=== PATIENT | female | born 1985 | race American Indian/Alaskan Native ===

== ENCOUNTER 2018-08-18 22:00 | Inpatient (IN) | payer BC, MEDICAID ==
--- NOTE | 2018-08-18 22:10 | Emergency Department Report ---
Chief Complaint: High BP Stated Complaint: HBP CHEST AND PRESSURE Time Seen by Provider: 08/18/18 22:10 - HPI History of Present Illness: rx lisinopril/hctz synthroid pmh htn hypothyroid psh c sec lmp 1 w ago cc substernal cp and faint pcp Dr Cantor risk obese htn mom/dad alive - dm/htn mse completed - Exam Vital Signs: Vital Signs 08/18/18 22:04 Temperature 98.1 F Pulse Rate 114 H Respiratory 18 Rate Blood Pressure 170/99 O2 Sat by Pulse 100 Oximetry MSE screening note: Focused history and physical exam performed. Due to findings the following was ordered: ED Disposition for MSE Condition: Stable
[2018-08-18 22:36] LABS: Hematocrit 37.5 % (30.3-42.9); Hemoglobin 12.4 gm/dl (10.1-14.3); Mean Corpuscular HGB Conc 33 % (30-34); Mean Corpuscular Volume 77 fl (79-97); Platelet Count 384 K/mm3 (140-440); Red Blood Count 4.88 M/mm3 (3.65-5.03); Red Cell Distribution Width 16.2 % (13.2-15.2)
[2018-08-18 22:50] LABS: Alanine Aminotransferase 15 units/L (7-56); BUN/Creatinine Ratio 16; Blood Urea Nitrogen 11 mg/dL (7-17); Calcium 9.4 mg/dL (8.4-10.2); Hemolysis Index 64
[2018-08-18] MEDS ORDERED: NITRO-BID 2% TP ONE (23:04)
--- NOTE | 2018-08-18 23:17 | Emergency Department Report ---
HPI - General Chief Complaint: High BP Time Seen by Provider: 08/18/18 22:10 - HPI HPI: Room 24 The patient is 33-year-old female presenting with a chief complaint of headache and chest pressure. The patient states she's been intermittently compliant with her blood pressure medication. The patient states the past month she's had intermittent substernal chest discomfort described as a heaviness associated with shortness of breath and nausea. Patient denies vomiting or diaphoresis. The patient states today she began to feel near syncopal and since 21:00 she's also had a headache prompting her to go to an urgent care facility who in turn sent her to the ED secondary to her elevated blood pressure. Patient states she's never had a stress test or cardiac catheterization Location: Chest, head Duration: Intermittent times one month Quality: Heaviness Severity: Moderate Modifying factors: [see above] Context: [see above] Mode of transportation: [not driving] ED Past Medical Hx - Past Medical History Previous Medical History?: Yes Hx Hypertension: Yes (Medications) Additional medical history: Hypothyroid, Morbid Obesity - Surgical History Additional Surgical History: - Family History Family history: no significant - Social History Smoking Status: Never Smoker Substance Use Type: None (denies illicit drug use), Alcohol (occasional) - Medications Home Medications: Home Medications Medication Instructions Recorded Confirmed Last Taken Type Labetalol [Normodyne] 200 mg PO BID 11/14/14 08/19/18 01/14/15 02:30 History Levothyroxine Sodium [Synthroid] 100 mcg PO DAILY 11/14/14 08/19/18 01/28/15 07:46 History Tablet 1 tab PO DAILY 11/14/14 08/19/18 01/13/15 09:00 History oxyCODONE /ACETAMINOPHEN [Percocet 1 tab PO Q4HR PRN #30 tablet 01/27/15 08/19/18 Unknown Rx 5/325 mg] Lisinopril/Hydrochlorothiazide 20 mg PO QDAY 08/19/18 08/19/18 Unknown History ED Review of Systems ROS: Stated complaint: HBP CHEST AND PRESSURE Other details as noted in HPI Constitutional: diaphoresis Eyes: denies: eye pain ENT: denies: throat pain Respiratory: shortness of breath Cardiovascular: chest pain Endocrine: no symptoms reported Gastrointestinal: nausea. denies: vomiting Genitourinary: denies: dysuria Musculoskeletal: denies: back pain Neurological: headache Physical Exam - Physical Exam Vital Signs: Vital Signs 08/18/18 08/18/18 22:04 22:13 Temperature 98.1 F 98.1 F Pulse Rate 114 H 107 H Respiratory 18 18 Rate Blood Pressure 170/99 170/99 O2 Sat by Pulse 100 100 Oximetry Physical Exam: GENERAL: The patient is well-developed well-nourished female lying on stretcher not appearing to be in acute distress. [] HEENT: Normocephalic. Atraumatic. Extraocular motions are intact. Patient has moist mucous membranes. NECK: Supple. Trachea midline CHEST/LUNGS: Clear to auscultation. There is no respiratory distress noted. HEART/CARDIOVASCULAR: Regular. There is no tachycardia. There is no gallop rub or murmur. ABDOMEN: Abdomen is soft, nontender. Patient has normal bowel sounds. There is no abdominal distention. SKIN: There is no rash. There is no edema. There is no diaphoresis. NEURO: The patient is awake, alert, and oriented. The patient is cooperative. The patient has no focal neurologic deficits. The patient has normal speech. Cranial nerves II through XII grossly intact, no drift MUSCULOSKELETAL: There is no evidence of acute injury. ED Course Vital Signs 08/18/18 08/18/18 22:04 22:13 Temperature 98.1 F 98.1 F Pulse Rate 114 H 107 H Respiratory 18 18 Rate Blood Pressure 170/99 170/99 O2 Sat by Pulse 100 100 Oximetry ED Medical Decision Making - Lab Data Result diagrams: 08/18/18 22:27 08/18/18 22:27 Laboratory Tests 08/18/18 08/18/18 08/18/18 22:27 22:27 22:50 WBC 7.5 RBC 4.88 Hgb 12.4 Hct 37.5 MCV 77 L MCH 26 L MCHC 33 RDW 16.2 H Plt Count 384 Sodium 135 L Potassium 4.2 Chloride 97.3 L Carbon Dioxide 25 Anion Gap 17 BUN 11 Creatinine 0.7 Estimated GFR > 60 BUN/Creatinine Ratio 16 Glucose 98 Calcium 9.4 Total Bilirubin 0.30 AST 18 ALT 15 Alkaline Phosphatase 75 Troponin T < 0.010 Total Protein 7.8 Albumin 4.0 Albumin/Globulin Ratio 1.1 Urine Color Straw Urine Turbidity Clear Urine pH 6.0 Ur Specific [place] 1.003 Urine Protein <15 mg/dl Urine Glucose (UA) Neg Urine Ketones Neg Urine Blood Neg Urine Nitrite Neg Urine Bilirubin Neg Urine Urobilinogen < 2.0 Ur Leukocyte Esterase Tr Urine WBC (Auto) 1.0 Urine RBC (Auto) 1.0 U Epithel Cells (Auto) 3.0 Urine Bacteria (Auto) 1+ Urine HCG, Qual Negative - EKG Data -: EKG Interpreted by Me EKG shows normal: sinus rhythm Rate: normal - EKG Data When compared to previous EKG there are: previous EKG unavailable Interpretation: other (no ischemic changes seen) - Radiology Data Radiology results: pending (CT head), report reviewed (chest x-ray), image reviewed (CT head) interpreted by me: CT head (read by myself) -no gross acute hemorrhage seen - Differential Diagnosis hypertensive urgency, ACS, pericarditis, GERD, ICH Critical care attestation.: If time is entered above; I have spent that time in minutes in the direct care of this critically ill patient, excluding procedure time. ED Disposition Clinical Impression: Hypertensive urgency, Chest pain Disposition: DC-09 OP ADMIT IP TO THIS HOSP Is pt being admited?: Yes Does the pt Need Aspirin: Yes Condition: Fair Instructions: Chest Pain (ED) Time of Disposition: 01:39 (hospitalist notified Dr Taylor))
[2018-08-18 23:53] LABS: Bacteria,Urine 1+ /HPF (Negative); Bilirubin,Urine NEG (Negative); Blood,Urine NEG (Negative); Color,Urine Straw (Yellow); Protein,Urine <15 mg/dL mg/dL (Negative); Urobilinogen,Urine < 2.0 mg/dL (<2.0)
[2018-08-18 23:56] LABS: HCG Qualitative,Urine Negative (Negative)
--- NOTE | 2018-08-19 01:09 | XRay Report ---
PROCEDURE: XR CHEST 1V AP TECHNIQUE: Chest radiograph single view. HISTORY: chest pain COMPARISONS: None . FINDINGS: Heart: Normal. Mediastinum/Vessels: Normal. Lungs/Pleural space: Normal. Bony thorax: No acute osseous abnormality. Life support devices: None. IMPRESSION: No acute cardiopulmonary abnormality. This document is electronically signed by Jazz Myles DO., August 19 2018 01:07:03 AM ET
--- NOTE | 2018-08-19 01:52 | Cat Scan Report ---
PROCEDURE: CT HEAD/BRAIN WO CON TECHNIQUE: Computerized tomography of the head was performed without contrast material. CT DOSE LENGTH PRODUCT: 805 mGycm HISTORY: hypertension, headache COMPARISONS: None . FINDINGS: Skull and scalp: Normal . Paranasal sinuses: Normal . Ventricles and subarachnoid spaces: Normal . Cerebrum: No evidence of hemorrhage, acute infarction or mass . Cerebellum and brainstem: No evidence of hemorrhage, acute infarction or mass . Vasculature: Normal . Other: None . ASPECTS: 10 IMPRESSION: Normal Examination . This document is electronically signed by Jazz Myles DO., August 19 2018 01:50:36 AM ET
[2018-08-19] MEDS ORDERED: NITROSTAT SL PRN (03:37)
[2018-08-19] MEDS ORDERED: MORPHINE IV PRN (03:38)
[2018-08-19] MEDS ORDERED: ZOFRAN IV PRN (03:38)
[2018-08-19] MEDS ORDERED: TYLENOL PO PRN (03:38)
[2018-08-19] MEDS: HEPARIN SUB-Q SCH ×2 (04:17→13:45)
--- NOTE | 2018-08-19 05:47 | History and Physical Report ---
CHIEF COMPLAINT: Chest pain. OTHER COMPLAINT: Include headaches. HISTORY OF PRESENTING ILLNESS: The patient is a 33-year-old female who says she has been having intermittent chest pain going on for about one month. The pain reoccurred yesterday 08/18/2018 with headache and near syncopal feeling. There is also history of associated shortness of breath and nausea, but no vomiting. The patient also denies history of diaphoresis and said that her blood pressure was high and went to an urgent care from where she was referred to the Emergency Room because of elevated blood pressure with chest pain. The patient's pain is in the retrosternal and precordial area, appears as heaviness, does not radiate, not affected by movement or breathing. PAST MEDICAL HISTORY: Pertinent for hypertension, hypothyroidism, morbid obesity. PAST SURGICAL HISTORY: Pertinent for . FAMILY HISTORY: Family history is noncontributory. SOCIAL HISTORY: The patient does not smoke, drinks alcohol occasionally and does not use illicit drugs. MEDICATIONS: The patient is on labetalol 200 mg by mouth daily, levothyroxine 100 mcg by mouth daily, Percocet 5/325 mg one by mouth every 4 hours as needed for pain and lisinopril/hydrochlorothiazide once daily, dose not clear. The patient is also on tablets one by mouth daily. ALLERGIES: THE PATIENT IS ALLERGIC TO SHELLFISH. REVIEW OF SYSTEMS: CONSTITUTIONAL: There is no fever, no chills, no diaphoresis. HEENT: There is headache, but no sore throat. CARDIOVASCULAR SYSTEM: There is chest pain, but no orthopnea. RESPIRATORY SYSTEM: There is shortness of breath and no cough. GASTROINTESTINAL SYSTEM: There is nausea, but no vomiting, no abdominal pain, diarrhea or constipation. NEUROLOGICAL SYSTEM: There is no numbness, no dizziness, but there is near syncopal feeling and no change in mental status. MUSCULOSKELETAL SYSTEM: There is no joint pain or swelling. DERMATOLOGICAL SYSTEM: There is no skin rash or itching. GENITOURINARY SYSTEM: There is no dysuria, hematuria, or flank pain. Rest of system review is normal. PHYSICAL EXAMINATION: GENERAL: At the time of exam, the patient was found to be alert, oriented x 3, and not in acute distress. VITAL SIGNS: Shows temperature of 98.1 degrees Fahrenheit, pulse of 114, respiration 18, blood pressure 170/99, O2 sat of 100% on room air. HEENT: Showed pupils to be equal, round, reactive to light and accommodating. Extraocular muscles are intact. NECK: Neck is supple with no JVD or carotid bruit. CARDIOVASCULAR SYSTEM: Showed normal first and second heart sounds with no gallops or murmurs. RESPIRATORY SYSTEM: Showed good air entry on both sides of the lungs with no abnormal breath sound. GASTROINTESTINAL SYSTEM: Show abdomen to be full, soft, nontender with no organomegaly or rigidity. NEUROLOGICAL: Neuro exam shows no focal deficit. MUSCULOSKELETAL SYSTEM: Show no joint swelling or tenderness. DERMATOLOGICAL SYSTEM: Show no skin rash. GENITOURINARY SYSTEM: Showing no costovertebral angle tenderness. PERTINENT LABORATORY AND IMAGING STUDIES: The patient had chest x-ray done and the patient's chest x-ray showed no acute cardiopulmonary lesion. Also the patient had CT of the head without contrast done that came back normal. The patient's lab results show CBC with normal white count, normal hemoglobin and normal hematocrit. The patient's chemistry shows slightly decreased sodium level of 135 and slightly decreased chloride level of 97.3 with rest of chemistry being unremarkable. The patient's urinalysis showed trace urine leukocyte esterase, otherwise normal and the patient's urine test is negative. DIAGNOSES: 1. Chest pain. 2. Headache. 3. Obesity PLAN OF ACTION: 1. The patient will be admitted to telemetry. 2. The patient will have cardiac enzymes involving troponin, total CK and CK-MB check q. 6 hours x 2 more levels. 3. The patient will be on p.r.n. medications like Tylenol 650 mg by mouth every 4 hours for fever and headache and IV morphine 2 mg every 3 hours as needed for pain and IV Zofran 4 mg every 8 hours for nausea and vomiting. 4. The patient will be on nitro paste half inch to anterior chest wall q.i.d. and will be on Nitrostat 0.4 mg sublingual every 5 minutes as needed for breakthrough chest pain. 5. The patient will be on heparin 5000 units subcutaneous q. 12 hours and will be on oxygen by nasal cannula at 2 liter per minute. 6. The patient will remain n.p.o. for Lexiscan stress test. JOB# [id number] OCN/NTS MTDD
[2018-08-19 06:33] LABS: Creatine Kinase MB 1.2 ng/mL (0.0-4.0)
[2018-08-19] MEDS: NITRO-BID 2% TP SCH ×3 (07:30→13:55)
[2018-08-19] MEDS ORDERED: ASPIRIN PO SCH (10:00)
[2018-08-19 12:03] LABS: Creatine Kinase MB 1.1 ng/mL (0.0-4.0)
[2018-08-19 13:45] VITALS: BP 135/82
--- NOTE | 2018-08-19 16:11 | Discharge Summary ---
Providers - Providers Date of Admission: 08/19/18 03:34 Date of discharge: 08/19/18 Attending physician: PERRY AVILES [facility] Condition: Fair Pertinent studies: Normal CXR NO acute process on head CT Normal exercise stress test Hospital course: The patient is 33-year-old female presented with a chief complaint of headache and chest pressure, BP of 170/99. The patient stated that today she began to feel near syncopal and since 21:00 she's also had a headache prompting her to go to an urgent care facility who in turn sent her to the ED secondary to her elevated blood pressure. Patient states she's never had a stress test or cardiac catheterizing. She was admitted for further evaluation and management. Her CT head was unremarkable, Stress test was normal, resumed her home meds, BP was improved, headache resolved, she was then discharged home in stable condition. Discharge diagnosis: Chest pain, likely musculosketal VS GERD Tension headache, CT head was unremarkable HTN, uncontrolled Hypothyroidism, on replacement Disposition: TO HOME OR SELFCARE Time spent for discharge: 34 minutes Core Measure Documentation - Palliative Care Palliative Care/ Comfort Measures: Not Applicable - Core Measures Any of the following diagnoses?: none Exam - Constitutional Vitals: Temp Pulse Resp BP Pulse Ox 98.6 F 102 H 19 135/82 99 08/19/18 06:15 08/19/18 13:44 08/19/18 12:03 08/19/18 13:44 08/19/18 12:03 General appearance: Present: no acute distress, well-nourished - EENT Eyes: Present: PERRL ENT: hearing intact, clear oral mucosa - Neck Neck: Present: supple, normal ROM - Respiratory Respiratory effort: normal Respiratory: bilateral: CTA - Cardiovascular Heart Sounds: Present: S1 & S2. Absent: rub, click - Extremities Extremities: pulses symmetrical, No edema Peripheral Pulses: within normal limits - Abdominal General gastrointestinal: Present: soft, non-tender, non-distended, normal bowel sounds - Integumentary Integumentary: Present: clear, warm, dry - Musculoskeletal Musculoskeletal: gait normal, strength equal bilaterally - Psychiatric Psychiatric: appropriate mood/affect, intact judgment & insight - Neurologic Neurologic: CNII-XII intact, moves all extremities Plan Activity: advance as tolerated Weight Bearing Status: Weight Bear as Tolerated Diet: regular Follow up with: BASHIR ONEILL MD [Primary Care Provider] - 3-5 Days Forms: Work/School Release Form Prescriptions: Lisinopril/Hydrochlorothiazide 20 mg PO QDAY #30 Labetalol [Normodyne TAB] 200 mg PO BID #60 tablet Pantoprazole [Protonix] 40 mg PO QDAY #30 tablet Levothyroxine [Synthroid] 100 mcg PO QAM #30 tablet
--- NOTE | 2018-08-19 22:19 | Treadmill Report ---
STRESS TEST REPORT This is regular exercise stress test. The patient exercised for 5 minutes of a Grey protocol, reaching stage 2 and achieving 6 METs. Peak heart rate was 194 beats per minute. Peak blood pressure was 171 systolic. There was no chest pain. Test was stopped due to fatigue. With exercise, there were no ST changes of ischemia. No significant dysrhythmias were noted. CONCLUSION: 1. Below-average exercise capacity. 2. No chest pain. 3. No ST changes of ischemia. 4. No significant dysrhythmias. This is a negative exercise stress test. JOB# [id number] CA/NTS
== END 2018-08-19 18:00 | disposition home or self-care (01) | DRG 392 ==
LOC: ED 22:00 → 4A 08-19 03:34
PROVIDERS: ADMIT Internal Medicine; ATTEND Internal Medicine
DX: K21.9 Gastro-esophageal reflux disease without esophagitis (principal); Z68.1 Body mass index [BMI] 19.9 or less, adult; G44.209 Tension-type headache, unspecified, not intractable; I16.0 Hypertensive urgency; R07.89 Other chest pain; I10 Essential (primary) hypertension; E03.9 Hypothyroidism, unspecified; E66.01 Morbid (severe) obesity due to excess calories; Z72.89 Other problems related to lifestyle; Z79.899 Other long term (current) drug therapy; Z91.013 Allergy to seafood
CPT/HCPCS: 36415; 70450; 71045; 80053; 81001; 81025; 82550; 82553; 84484; 85027; 93005; 93010; 93017; G0378; J1644

== ENCOUNTER 2018-08-25 00:56 | Emergency (ER) | payer BC ==
[2018-08-25 04:11] LABS: Basophils # (Auto) 0.1 K/mm3 (0.0-0.1); Basophils % (Auto) 1.1 % (0.0-1.8); Eosinophils # (Auto) 0.2 K/mm3 (0.0-0.4); Eosinophils % (Auto) 2.8 % (0.0-4.3); Hematocrit 37.3 % (30.3-42.9); Hemoglobin 12.4 gm/dl (10.1-14.3); Lymphocytes # (Auto) 2.4 K/mm3 (1.2-5.4); Mean Corpuscular HGB Conc 33 % (30-34); Mean Corpuscular Volume 77 fl (79-97); Monocytes # (Auto) 0.6 K/mm3 (0.0-0.8); Monocytes % (Auto) 7.8 % (0.0-7.3); Platelet Count 354 K/mm3 (140-440); Red Blood Count 4.85 M/mm3 (3.65-5.03); Red Cell Distribution Width 16.5 % (13.2-15.2)
[2018-08-25 04:13] LABS: Mean Corpuscular Hemoglobin 26 pg (28-32)
[2018-08-25 04:21] LABS: INR 0.93 (0.87-1.13)
[2018-08-25 04:38] LABS: Alanine Aminotransferase 17 units/L (7-56); Albumin 4.1 g/dL (3.9-5); BUN/Creatinine Ratio 14; Blood Urea Nitrogen 15 mg/dL (7-17); Calcium 9.3 mg/dL (8.4-10.2); Hemolysis Index 6
--- NOTE | 2018-08-25 04:39 | Emergency Department Report ---
ED Lower Extremity HPI - General Chief Complaint: Extremity Injury, Lower Stated Complaint: RIGHT CALF PAIN Time Seen by Provider: 08/25/18 03:35 Source: patient Mode of arrival: Ambulatory Limitations: No Limitations - History of Present Illness Initial Comments: Patient with 33-year-old female who presents for right calf pain 4 days patient states completed a cardiac stress test 4 days ago at this ED was admitted for today for same started on Plavix however did not go home with blood thinner studies right Sudden onset 4 days ago and is progressing exacerbated by dorsiflexion foot there is no shortness of breath no cough no wheezing no chills no back pain patient is morbidly obese woman has history of hypertension states she is is she is adherent with medications with questionable rule out DVT there has been on prolonged sitting standing or travel history DVT in the past Onset/Timin -: days(s) Injury: Leg: Right Type of Injury: unknown Place: home Severity: moderate Severity scale (0 -10): 5 Improves With: nothing Worsens With: movement, palpation Associated Symptoms: swelling, tingling, ambulatory - Related Data Home Medications Medication Instructions Recorded Confirmed Last Taken Levothyroxine Sodium [Synthroid] 100 mcg PO DAILY 11/14/14 08/19/18 01/28/15 07:46 Previous Rx's Medication Instructions Recorded Last Taken Type Labetalol [Normodyne TAB] 200 mg PO BID #60 tablet 08/19/18 Unknown Rx Levothyroxine [Synthroid] 100 mcg PO QAM #30 tablet 08/19/18 Unknown Rx Lisinopril/Hydrochlorothiazide 20 mg PO QDAY #30 08/19/18 Unknown Rx Pantoprazole [Protonix] 40 mg PO QDAY #30 tablet 08/19/18 Unknown Rx Allergies Allergy/AdvReac Type Severity Reaction Status Date / Time shellfish derived Allergy Itching Verified 08/24/13 03:26 ED Review of Systems ROS: Stated complaint: RIGHT CALF PAIN Other details as noted in HPI Constitutional: denies: chills, fever Eyes: denies: eye pain, eye discharge, vision change ENT: denies: ear pain, throat pain Respiratory: denies: cough, shortness of breath, wheezing Cardiovascular: denies: chest pain, palpitations Endocrine: no symptoms reported Gastrointestinal: denies: abdominal pain, nausea, diarrhea Genitourinary: denies: urgency, dysuria, discharge Musculoskeletal: arthralgia, other (right calf pain ) Skin: denies: rash, lesions Neurological: denies: headache, weakness, paresthesias Psychiatric: denies: anxiety, depression Hematological/Lymphatic: denies: easy bleeding, easy bruising ED Past Medical Hx - Past Medical History Hx Hypertension: Yes (Medications) Additional medical history: Hypothyroid, Morbid Obesity - Surgical History Additional Surgical History: - Social History Smoking Status: Never Smoker Substance Use Type: None - Medications Home Medications: Home Medications Medication Instructions Recorded Confirmed Last Taken Type Levothyroxine Sodium [Synthroid] 100 mcg PO DAILY 11/14/14 08/19/18 01/28/15 07:46 History Labetalol [Normodyne TAB] 200 mg PO BID #60 tablet 08/19/18 Unknown Rx Levothyroxine [Synthroid] 100 mcg PO QAM #30 tablet 08/19/18 Unknown Rx Lisinopril/Hydrochlorothiazide 20 mg PO QDAY #30 08/19/18 Unknown Rx Pantoprazole [Protonix] 40 mg PO QDAY #30 tablet 08/19/18 Unknown Rx ED Physical Exam - General Limitations: No Limitations General appearance: alert, in no apparent distress - Head Head exam: Present: atraumatic, normocephalic - Eye Eye exam: Present: normal appearance, PERRL, EOMI Pupils: Present: normal accommodation - ENT ENT exam: Present: normal exam, normal orophraynx, mucous membranes moist, TM's normal bilaterally, normal external ear exam - Neck Neck exam: Present: normal inspection, full ROM. Absent: tenderness, meningismus, lymphadenopathy - Respiratory Respiratory exam: Present: normal lung sounds bilaterally. Absent: respiratory distress, wheezes, stridor, chest wall tenderness - Cardiovascular Cardiovascular Exam: Present: regular rate, normal rhythm, normal heart sounds - GI/Abdominal GI/Abdominal exam: Present: soft, normal bowel sounds. Absent: distended, tenderness, rebound, rigid, mass, bruit, hernia - Rectal Rectal exam: Present: deferred - Extremities Exam Extremities exam: Present: normal inspection, full ROM, tenderness, normal capillary refill. Absent: pedal edema, joint swelling, calf tenderness - Expanded Lower Extremity Exam Right Hip exam: Present: full ROM. Absent: tenderness Upper Leg exam: Present: normal inspection, full ROM Knee exam: Present: normal inspection, full ROM Lower Leg exam: Present: tenderness, swelling, Justo's sign. Absent: abrasion, laceration, ecchymosis, deformity, crepidus, dislocation, erythema, palpable cord Ankle exam: Present: normal inspection, full ROM Foot/Toe exam: Present: normal inspection, full ROM, tenderness. Absent: swelling, abrasion, laceration, ecchymosis, deformity, crepidus, dislocation, erythema, amputation, puncture wound, foreign body, calcaneal tenderness, tende rness at base of 5th metatarsal, nail avulsion, subungual hematoma - Back Exam Back exam: Present: normal inspection, full ROM. Absent: tenderness, CVA tenderness (R), CVA tenderness (L), muscle spasm, paraspinal tenderness, vertebral tenderness, rash noted ED Course Vital Signs 08/25/18 01:05 Temperature 98.6 F Pulse Rate 105 H Respiratory 20 Rate Blood Pressure 149/95 ED Lower Extremity MDM - Lab Data Result diagrams: 08/25/18 04:00 08/25/18 04:00 - Medical Decision Making Labs include PT PTT perked score is 0 patient does have history of obesity and recent cardiac stress test plan DC home with Tylenol schedule outpatient ultrasound right lower extremity rule out DVT patient will follow up with outpatient radiology in the a.m. at 8:00 patient verbalized agreement and understanding with discharge plan patient given Lovenox subcutaneous IM 1 patient verbalized agreement and understanding of discharge plan return 100 for ultrasound right lower extremity Critical care attestation.: If time is entered above; I have spent that time in minutes in the direct care of this critically ill patient, excluding procedure time. ED Disposition Clinical Impression: Pain of right calf Disposition: DC-01 TO HOME OR SELFCARE Is pt being admited?: No Does the pt Need Aspirin: No Condition: Stable Instructions: Arthralgia (ED), Leg Cramps (ED), Musculoskeletal Pain (ED) Referrals: PRIMARY CARE, [Primary Care Provider] - 2-3 Days Forms: Work/School Release Form(ED) Time of Disposition: 05:31
[2018-08-25] MEDS ORDERED: LOVENOX SUB-Q ONE (05:30)
[2018-08-25 06:03] VITALS: BP 142/87
== END 2018-08-25 06:06 | disposition home or self-care (01) ==
LOC: ED 00:56
DX: M79.661 Pain in right lower leg (principal); R07.89 Other chest pain; I10 Essential (primary) hypertension; E03.9 Hypothyroidism, unspecified; E66.01 Morbid (severe) obesity due to excess calories; Z91.013 Allergy to seafood
CPT/HCPCS: 36415; 80053; 85025; 85610; 85730; 96372; 99283; J1650

== ENCOUNTER 2018-08-25 09:28 | Outpatient (CLI) | payer BC ==
--- NOTE | 2018-08-25 13:19 | Vascular Lab Report ---
PROCEDURE: US RIGHT LOWER EXTREMITY VENOUS DUPLEX DOPPLER TECHNIQUE: Duplex Doppler ultrasound of the RIGHT common and superficial femoral, popliteal, posteri or tibial, and proximal deep femoral veins was attempted. Noguera scale imaging with and without sondra remedios, spectral waveform analysis with and without augmentation, and color flow Doppler were employed. CPT 23909-FO HISTORY: Right lower extremity pain COMPARISONS: None . FINDINGS: Deep Venous Thrombus: None . Soft tissue abnormality: None . Other: None . IMPRESSION: No evidence of deep venous thrombosis . This document is electronically signed by Chandu Ha MD., August 25 2018 01:17:22 PM ET
== END 2018-08-25 09:29 | disposition home or self-care (01) ==
LOC: VAS 09:28
PROVIDERS: ATTEND Nurse Practitioner Family
DX: M79.604 Pain in right leg (principal); I10 Essential (primary) hypertension; E66.9 Obesity, unspecified; E03.9 Hypothyroidism, unspecified
CPT/HCPCS: 36415; 80053; 85025; 85610; 85730; 96372; J1650